=== PATIENT | female | born 1955 | race Caucasian/White ===

== ENCOUNTER → 2020-05-30 11:01 | Outpatient (BNVA) | payer OTHER, SELFPAY | PROVIDERS: PCP Internal Medicine; Referring Provider Internal Medicine; Visit Provider Physician Assistant | DX: R11.2 Nausea with vomiting, unspecified (principal); D64.9 Anemia, unspecified | CPT/HCPCS: 99212 ==

== ENCOUNTER 2020-06-02 13:39 | Outpatient (REF) | payer OTHER, SELFPAY ==
[2020-06-02 14:41] LABS: MANUAL DIFF FLAG NO
[2020-06-02 14:49] LABS: Basophils Percent Auto 0.6 % (0-2); Eosinophils Absolute Auto 0.2 X10*3/uL (0.0-0.4); Eosinophils Percent Auto 2.4 % (0-4); Hematocrit 29.3 % (37-47); Hemoglobin 8.4 g/dl (12.0-16.0); Imm Gran Abs Auto 0.02 X10*3/uL (0.00-0.03); Imm Gran Pct Auto 0.3 % (0.0-0.4); Lymphocytes Absolute Auto 1.9 X10*3/uL (1.2-4.9); Lymphocytes Percent Auto 27.5 % (20-40); Mean Corpuscular HGB Conc 28.7 g/dl (31.0-35.0); Mean Corpuscular Hemoglobin 19.4 pg (27.0-33.0); Mean Corpuscular Volume 67.8 fL (80-98); Mean Platelet Volume 9.3 fL (9.4-12.3); Monocytes Absolute Auto 0.5 X10*3/uL (0.1-1.2); Monocytes Percent Auto 6.7 % (2-11); Neutrophils Absolute Auto 4.2 X10*3/uL (2.0-8.3); Neutrophils Percent Auto 62.5 % (45-73); Platelet Count 339 X10*3/uL (160-400); Red Blood Count 4.32 X10*6/uL (4.20-5.50); Red Cell Distribution Width 22.9 % (11.0-16.0); White Blood Count 6.7 X10*3/uL (4.8-10.8)
[2020-06-02 15:21] LABS: Alanine Aminotransferase 18 U/L (0-31); Albumin Level 4.6 g/dL (3.5-5.0); Alkaline Phosphatase 86 U/L (39-117); Anion Gap 13 (12-20); Aspartate Amino Transferase 27 U/L (5-31); Bilirubin Total 0.6 mg/dL (0.0-1.0); Blood Urea Nitrogen 11 mg/dL (9-16); Calcium 8.9 mg/dL (8.4-10.2); Carbon Dioxide 29 mmol/L (22-29); Chloride 101 mmol/L (96-108); Estimated Glomerular Filt Rate > 60; Glucose Random 94 mg/dL (60-115); Potassium 3.8 mmol/l (3.3-5.1); Sodium 139 mmol/L (135-145); Total Protein 7.8 g/dL (6.5-8.0)
[2020-06-02 15:31] LABS: Ferritin 4 ng/mL (10-250); Thyroid Stimulating Hormone 1.23 uIU/mL (0.32-4.0)
[2020-06-02 15:44] LABS: Folate 9.7 ng/mL (> or = 4.0); Vitamin B12 405 pg/mL (200-900)
[2020-06-03 19:01] LABS: Transglutaminase IgA 1 U/mL
[2020-06-08 15:56] LABS: Endomysial IgA Antibody Negative (Negative)
== END 2020-06-02 13:40 | disposition home or self-care (01) ==
LOC: HO.LAB 13:39
PROVIDERS: PCP Internal Medicine; Visit Provider Physician Assistant
DX: D64.9 Anemia, unspecified (principal); R10.11 Right upper quadrant pain; R19.7 Diarrhea, unspecified; K59.09 Other constipation
CPT/HCPCS: 36415; 80053; 82607; 82728; 82746; 83516; 84443; 85025; 86255; 86256

== ENCOUNTER 2020-06-07 16:00 | Emergency (ER) | payer OTHER, SELFPAY ==
[2020-06-07 16:31] VITALS: BP 187/90; PULSE 88; RESP 18; TEMP 37.1; O2SAT 98; BMI 18.9
[2020-06-07 18:43] VITALS: BP 217/109; PULSE 83; RESP 16; O2SAT 100
--- NOTE | 2020-06-07 18:44 | ECG_ITS ---
Test Reason : ABNORMAL LABS Blood Pressure : / mmHG Vent. Rate : 081 BPM Atrial Rate : 081 BPM P-R Int : 198 ms QRS Dur : 088 ms QT Int : 422 ms P-R-T Axes : 043 034 062 degrees QTc Int : 490 ms Normal sinus rhythm Possible Left atrial enlargement Nonspecific ST abnormality Abnormal ECG When compared with ECG of 17-OCT-2018 06:47, Nonspecific T wave abnormality, improved in Inferior leads T wave inversion less evident in Anterolateral leads Referred By: Snehal Lopez Electronically Signed By:LISBET GONSALES MD
[2020-06-07 19:02] LABS: MANUAL DIFF FLAG NO
[2020-06-07 19:03] LABS: Basophils Absolute Auto 0.1 X10*3/uL (0.0-0.2); Basophils Percent Auto 0.6 % (0-2); Eosinophils Absolute Auto 0.2 X10*3/uL (0.0-0.4); Eosinophils Percent Auto 1.9 % (0-4); Hematocrit 30.4 % (37-47); Hemoglobin 8.7 g/dl (12.0-16.0); Imm Gran Abs Auto 0.03 X10*3/uL (0.00-0.03); Imm Gran Pct Auto 0.4 % (0.0-0.4); Lymphocytes Absolute Auto 2.4 X10*3/uL (1.2-4.9); Lymphocytes Percent Auto 28.7 % (20-40); Mean Corpuscular HGB Conc 28.6 g/dl (31.0-35.0); Mean Corpuscular Hemoglobin 19.6 pg (27.0-33.0); Mean Corpuscular Volume 68.3 fL (80-98); Mean Platelet Volume 9.1 fL (9.4-12.3); Monocytes Absolute Auto 0.6 X10*3/uL (0.1-1.2); Monocytes Percent Auto 6.9 % (2-11); Neutrophils Absolute Auto 5.2 X10*3/uL (2.0-8.3); Neutrophils Percent Auto 61.5 % (45-73); Platelet Count 319 X10*3/uL (160-400); Red Blood Count 4.45 X10*6/uL (4.20-5.50); Red Cell Distribution Width 22.9 % (11.0-16.0); White Blood Count 8.4 X10*3/uL (4.8-10.8)
[2020-06-07 19:05] LABS: Prothrombin Time 11.5 SEC (10.8-13.0)
[2020-06-07 19:38] LABS: Alanine Aminotransferase 12 U/L (0-31); Albumin Level 4.3 g/dL (3.5-5.0); Alkaline Phosphatase 76 U/L (39-117); Anion Gap 16 (12-20); Aspartate Amino Transferase 25 U/L (5-31); Bilirubin Direct < 0.2 mg/dL (0.0-0.5); Bilirubin Total 0.4 mg/dL (0.0-1.0); Blood Urea Nitrogen 21 mg/dL (9-16); Calcium 8.6 mg/dL (8.4-10.2); Carbon Dioxide 25 mmol/L (22-29); Chloride 104 mmol/L (96-108); Creatinine Clr Calc Pharmacy 56.3; Estimated Glomerular Filt Rate > 60; Glucose Random 89 mg/dL (60-115); Lipase 69 U/L (8-78); Potassium 3.9 mmol/l (3.3-5.1); Sodium 141 mmol/L (135-145); Total Protein 7.2 g/dL (6.5-8.0)
[2020-06-07 19:50] VITALS: BP 212/114; PULSE 81; RESP 14; TEMP 36.9; O2SAT 100
--- NOTE | 2020-06-07 19:50 | PC.NURSE ---
PT RESTING IN STRETHCER. EKG OBTAINED TO
[2020-06-07 19:56] VITALS: BP 212/109; PULSE 80
[2020-06-07] MEDS: lisinopriL 10 MG TABLET PO (19:56)
--- NOTE | 2020-06-07 20:00 | PC.NURSE ---
PT C/O STAYING TONIGHT. PA AT BEDSIDE CONVERSING WITH PT. PT STATES I HAVE A LOT OF THINGS TO DO TONIGHT AND I WILL COME BACK IN THE MORNING AND YOU CAN DO WHATEVER YOU WANT . PT MEDICATED FOR HIGH BP PER EMAR. PT EXPLAINED RISKS OF LEAVING AMA. PT DENIES ANY CP/SOB AT THIS TIME AND STATES MY B/P IS ALWAYS HIGH .
--- NOTE | 2020-06-07 20:16 | PC.NURSE ---
WHEN THIS NURSE RETURNS TO ROOM PT IS GONE. LEADS ON BED. PA AWARE.
--- NOTE | 2020-06-07 20:33 | ED.GENADULT ---
HPI - General Adult General Chief complaint: Recheck/Abnormal Lab/Rx Stated complaint: ABNORMAL LABS Time Seen by Provider: 06/07/20 18:19 Source: patient History of Present Illness HPI narrative: 64 y.o> F with PMH of HTN, alcohol abuse presenting to the ED for abnormal labs. Pt. states she was told by her doctor to come to the ED for a transfusion. She is scheduled for a colonoscopy on . She states last week she was having upper abdominal pain with episodes of black stool. She admits to using Peptobismol once. She states over the past 3 days she has been having normal BM no longer black. She denies associated hematemesis. She states she has stopped drinking but still continues to smoke. She did not take her BP medication (lisinopril 10mg )today. She denies fevers, CP, SOB, vomiting, hematemsis, urinary changes. No longer endorsing abdominal pain. Related Data Previous Rx's Medication Instructions Recorded bisacodyl 5 mg tablet,delayed 5 mg PO ONCE 1 Days #2 tab 06/07/20 release polyethylene glycol 3350 17 238 g PO .COMPLEX 1 Days #238 g 06/07/20 gram/dose oral powder Allergies Allergy/AdvReac Type Severity Reaction Status Date / Time Penicillins [PENICILLINS] Allergy Unknown RASH Verified 06/07/20 16:35 Review of Systems Constitutional: Constitutional: Denies fever(s) and Denies headache(s) Eyes: Eyes: Reports no additional eye complaints ENT: Denies headache(s) and Denies nasal congestion Cardiovascular: Cardiovascular: Denies chest pain and Denies dyspnea Respiratory: Respiratory: Denies dyspnea Gastrointestinal: Gastrointestinal: Reports abdominal pain, Reports melena and Denies coffee ground emesis Genitourinary: Comments: denies dysuria or hematuria Musculoskeletal: Musculoskeletal: Reports no additional musculoskeletal complaints Neurologic: Denies headache(s) and Denies focal weakness Hematologic/Lymphatic: Hematologic/Lymphatic: Denies easy bleeding PMFSH Past Medical History Medical History Alcohol use Anemia HTN (hypertension) Smoker Social History Social History (Updated 06/07/20 @ 20:41 by KAMILA Bright) Smoking Status: Current every day smoker Advance Directives: No Advance Directives Information Provided: Yes Current occupational status: disabled Physical Exam Vital Signs: Vital Signs: Last Vital Signs Temp 98.5 F 06/07/20 19:50 Pulse 80 11/17/20 19:56 Resp 14 06/07/20 19:50 BP 212/109 H 06/07/20 19:56 Pulse Ox 100 06/07/20 19:50 Body Mass Index 18.9 Const: Other: sitting upright at the bed of the stretcher, anxious Orientation/consciousness: patient oriented x3 HENMT: Head: Yes atraumatic Eyes: Pupils: Equal, round and reactive pupils present Neck: Neck: Yes trachea midline and Yes supple Resp: Auscultation: clear to auscultation bilaterally Cardio: Rate: regular rate GI: Inspection: No distended and No obesity Palpation (GI): Soft to palpation and nontender Rectal Exam - Female: deferred (pt. declined rectal exam ) Skin: Other: warm Neuro: General: patient oriented x3 Cranial nerves: Yes Equal, round and reactive pupils present Gait exam (Neuro): Normal gait present Extrem: General: Yes normal to inspection Course Course Course Narrative: 64 y.o. F presenting to the ED for abnormal labs. Per triage note pt. was presenting for a transfusion requested by her GI specialist Dr. rausch. Pt. is scheduled for a colonoscopy in 2 days. Pt. admits to having some abdominal pain last week with episodes of dark stool. She states over the past 3 days have stopped. VS significant for HTN, pt. did not take her BP medication. Will give home dose of lisinopril. Verified with [facility] pharmacy on [facility] in [place]. WIll plan to repeat basic labs. Will assess H&H, will order type and screen as I anticipate she will need a transfusion per her GI. Will order chemistry panel to assess for electrolyte abnormalities. Will evaluate EKG for signs of ischemia. She denies CP or SOB. Given her prior abdominal pain and black stool I am concerned she may have a GI bleed as she has a hx of alcohol abuse. pt. may not be forthcoming with stopping her alcohol use. She is not intoxicated at this time. -I discussed she will need admission for her transfusion and concern for GI bleed. pt. declined the rectal exam. She states she has to go home to take care of a few things. I encouraged her to stay for her complete work up and treatment. pt. continuing to decline. I discussed risks of GI bleed, hypertensive emergency, even . automotive technology instructor was present during this discussion. Pt. has full capacity to make this decision to not stay for further work up and treatment. Pt. will be leaving AMA. Pt. left prior to receiving discharge instructions. Medical Decision Making Lab Data Result diagrams: 06/07/20 18:50 06/07/20 18:50 Labs: Lab Results 06/07/20 06/07/20 06/07/20 Range/Units 18:50 18:50 18:50 WBC 8.4 (4.8-10.8) X10*3/uL RBC 4.45 (4.20-5.50) X10*6/uL Hgb 8.7 L (12.0-16.0) g/dl Hct 30.4 L (37-47) % MCV 68.3 L (80-98) fL MCH 19.6 L (27.0-33.0) pg MCHC 28.6 L (31.0-35.0) g/dl RDW 22.9 H (11.0-16.0) % Plt Count 319 (160-400) X10*3/uL MPV 9.1 L (9.4-12.3) fL Immature Gran % (Auto) 0.4 (0.0-0.4) % Neut % (Auto) 61.5 (45-73) % Lymph % (Auto) 28.7 (20-40) % [place] % (Auto) 6.9 (2-11) % Eos % (Auto) 1.9 (0-4) % Baso % (Auto) 0.6 (0-2) % Lymph # (Auto) 2.4 (1.2-4.9) X10*3/uL [place] # (Auto) 0.6 (0.1-1.2) X10*3/uL Eos # (Auto) 0.2 (0.0-0.4) X10*3/uL Baso # (Auto) 0.1 (0.0-0.2) X10*3/uL Abs Immat Gran (auto) 0.03 (0.00-0.03) X10*3/uL Absolute Neuts (auto) 5.2 (2.0-8.3) X10*3/uL Absolute Nucleated RBC 0.000 (0.0-0.012) X10*3/uL Nucleated RBC % (auto) 0.0 (0.0-0.2) /100WBC PT 11.5 (10.8-13.0) SEC INR 1.0 (0.9-1.1) Sodium 141 (135-145) mmol/L Potassium 3.9 (3.3-5.1) mmol/l Chloride 104 (96-108) mmol/L Carbon Dioxide 25 (22-29) mmol/L Anion Gap 16 (12-20) BUN 21 H D (9-16) mg/dL Creatinine 0.71 (0.5-1.4) mg/dL Estim Creat Clear Calc 56.3 Estimated GFR > 60 Random Glucose 89 (60-115) mg/dL Calcium 8.6 (8.4-10.2) mg/dL Total Bilirubin 0.4 (0.0-1.0) mg/dL Direct Bilirubin < 0.2 (0.0-0.5) mg/dL AST 25 (5-31) U/L ALT 12 (0-31) U/L Alkaline Phosphatase 76 (39-117) U/L Total Protein 7.2 (6.5-8.0) g/dL Albumin 4.3 (3.5-5.0) g/dL Lipase 69 (8-78) U/L ECG Data Attestation: I personally reviewed and interpreted this ECG as follows: Interpretation: T wave inversion V2 III, ST segment elevation V3, QTC 490 regular rate and rhythm, rate 81 Discharge Plan Discharge Clinical Impression: Anemia, Abdominal pain Patient Disposition: Left Against Medical Advice Prescriptions: No Action bisacodyl [Dulcolax (bisacodyl)] 5 mg tablet,delayed release (DR/EC) 5 mg PO ONCE 1 Days Qty: 2 RF: 0 polyethylene glycol 3350 [Miralax] 17 gram/dose powder 238 g PO .COMPLEX 1 Days Qty: 238 RF: 0
== END 2020-06-07 22:00 | disposition left against medical advice (07) ==
PROVIDERS: Physician Assistant Medical; Emergency Provider Internal Medicine; PCP Internal Medicine
DX: D64.9 Anemia, unspecified (principal); R10.9 Unspecified abdominal pain; I10 Essential (primary) hypertension; F17.200 Nicotine dependence, unspecified, uncomplicated; Z71.6 Tobacco abuse counseling; Z79.899 Other long term (current) drug therapy; R79.89 Other specified abnormal findings of blood chemistry
CPT/HCPCS: 36415; 80053; 80076; 82248; 83690; 85025; 85610; 93005; 99284

== ENCOUNTER 2020-06-09 06:25 | Day surgery (SDC) | payer OTHER, SELFPAY ==
--- NOTE | 2020-06-08 10:13 | P.CONAN_ITS ---
HPI - Anesthesia Eval Consult details Narrative: 64yo F for Upper Endoscopy and Colonoscopy Pt seen in ED 06/07/20 - sent by GI for blood transfusion. Pt left AMA before admission and transfusion. [facility] Past Medical History Medical History Alcohol use Anemia HTN (hypertension) Smoker Social History Social History (Updated 06/07/20 @ 20:41 by KAMILA Bright) Smoking Status: Current every day smoker Advance Directives: No Advance Directives Information Provided: Yes Current occupational status: disabled Meds Allergies Allergy/AdvReac Type Severity Reaction Status Date / Time Penicillins [PENICILLINS] Allergy Unknown RASH Verified 06/07/20 16:35 Exam Exam Date and Time: June 08, 2020 1013 Pertinent Lab Results Pertinent Lab Results: Laboratory Tests 06/07/20 06/07/20 18:50 18:50 WBC 8.4 Hgb 8.7 L Hct 30.4 L Plt Count 319 Sodium 141 Potassium 3.9 Chloride 104 Carbon Dioxide 25 BUN 21 H D Creatinine 0.71 Narrative Narrative: EKG 05/2020 Normal sinus rhythm Possible Left atrial enlargement Septal infarct , age undetermined Cannot rule out Inferior infarct (cited on or before 17-OCT-2018) Abnormal ECG When compared with ECG of 17-OCT-2018 06:47, Nonspecific T wave abnormality, improved in Inferior leads T wave inversion less evident in Anterolateral leads Assessment and Plan Assessment Anesthesia Assessment: Chart Reviewed
[2020-06-09 06:44] VITALS: BMI 20.5
--- NOTE | 2020-06-09 07:25 | PC.NURSE ---
PATIENT WAS EATING MINT UPON ARRIVAL, ANESTHESIA NOTIFIED. POOR PREP RESULTS PATIENT STATED SHE WAS STILL HAVING BROWN, SOLID BOWEL MOVEMENTS DESPITE DRINKING ENTIRE PREP AND WITHHOLDING FROM ANY SOLID FOODS THE DAY BEFORE. DR STARKS NOTIFIED AND REQUESTED PATIENT RECEIVE 2 FLEET ENEMAS AND PATIENT WAS MADE AWARE. UPON FURTHER QUESTIONING SHE STATED SHE HAD HALF A CUP OF MARISELA TEA WITH MILK IN IT ABOUT TWO HOURS AGO BEING 0500. ANESTHESIA NOTIFIED OF RECENT INTAKE OF LIQUIDS WELL A BLOOD PRESSURE OF 205/106. ANESTHESIA CAME TO BEDSIDE. BOTH ANESTHESIA BAUDILIO AND PATIENT IN AGREEMENT IT WOULD BE BEST TO CANCEL PROCEDURES FOR TODAY AND RESCHEDULE FOR ANOTHER DAY WITH BETTER PREP/INSTRUCTIONS. PATIENT NOTIFIED TO CALL OFFICE TO RESCHEDULE, BELONGINGS RETURNED AND PATIENT LEFT [facility] TO GO HOME
== END 2020-06-09 23:59 ==
LOC: HO.SSS 06:25
PROVIDERS: PCP Internal Medicine; Visit Provider Internal Medicine Gastroenterology
DX: D64.9 Anemia, unspecified (principal); Z53.8 Procedure and treatment not carried out for other reasons

== ENCOUNTER → 2020-06-20 10:01 | Outpatient (BNVA) | payer OTHER, SELFPAY | PROVIDERS: Visit Provider Physician Assistant | DX: D64.9 Anemia, unspecified (principal) | CPT/HCPCS: 99212 ==

== ENCOUNTER → 2020-07-19 08:50 | Outpatient (BNVA) | payer OTHER, SELFPAY | PROVIDERS: PCP Internal Medicine; Visit Provider Internal Medicine Gastroenterology | DX: D50.0 Iron deficiency anemia secondary to blood loss (chronic) (principal) | CPT/HCPCS: 99212 ==

== ENCOUNTER 2020-10-14 09:39 | Outpatient (REF) | payer OTHER, SELFPAY ==
[2020-10-14 11:29] LABS: MANUAL DIFF FLAG NO
[2020-10-14 11:30] LABS: Basophils Percent Auto 0.5 % (0-2); Eosinophils Absolute Auto 0.1 X10*3/uL (0.0-0.4); Eosinophils Percent Auto 1.4 % (0-4); Hematocrit 35.8 % (37-47); Hemoglobin 10.8 g/dl (12.0-16.0); Imm Gran Abs Auto 0.02 X10*3/uL (0.00-0.03); Imm Gran Pct Auto 0.3 % (0.0-0.4); Lymphocytes Absolute Auto 2.3 X10*3/uL (1.2-4.9); Lymphocytes Percent Auto 28.9 % (20-40); Mean Corpuscular HGB Conc 30.2 g/dl (31.0-35.0); Mean Corpuscular Hemoglobin 23.6 pg (27.0-33.0); Mean Corpuscular Volume 78.3 fL (80-98); Mean Platelet Volume 9.3 fL (9.4-12.3); Monocytes Absolute Auto 0.5 X10*3/uL (0.1-1.2); Monocytes Percent Auto 5.8 % (2-11); Neutrophils Percent Auto 63.1 % (45-73); Platelet Count 236 X10*3/uL (160-400); Red Blood Count 4.57 X10*6/uL (4.20-5.50); Red Cell Distribution Width 19.9 % (11.0-16.0); White Blood Count 7.9 X10*3/uL (4.8-10.8)
[2020-10-14 12:04] LABS: Alanine Aminotransferase 8 U/L (0-31); Albumin Level 4.1 g/dL (3.5-5.0); Alkaline Phosphatase 89 U/L (39-117); Anion Gap 14 (12-20); Aspartate Amino Transferase 17 U/L (5-31); Bilirubin Total 0.4 mg/dL (0.0-1.0); Blood Urea Nitrogen 17 mg/dL (9-16); Calcium 8.7 mg/dL (8.4-10.2); Carbon Dioxide 28 mmol/L (22-29); Chloride 104 mmol/L (96-108); Estimated Glomerular Filt Rate > 60; Glucose Random 95 mg/dL (60-115); Potassium 4.7 mmol/L (3.3-5.1); Sodium 141 mmol/L (135-145)
[2020-10-14 12:24] LABS: Ferritin 9 ng/mL (10-250)
== END 2020-10-14 09:40 | disposition home or self-care (01) ==
LOC: HO.LAB 09:39
PROVIDERS: PCP Internal Medicine; Visit Provider Internal Medicine Gastroenterology
DX: D50.0 Iron deficiency anemia secondary to blood loss (chronic) (principal); I10 Essential (primary) hypertension; D64.9 Anemia, unspecified; F17.210 Nicotine dependence, cigarettes, uncomplicated; F10.20 Alcohol dependence, uncomplicated; Z88.0 Allergy status to penicillin
CPT/HCPCS: 36415; 80053; 82728; 85025; 99212

== ENCOUNTER 2020-10-15 16:40 | Emergency (ER) | payer OTHER, SELFPAY ==
--- NOTE | ~2020-10-15 | XR_ITS ---
EXAMINATION: XR CHEST CLINICAL INFORMATION: Hemoptysis COMPARISON: None TECHNIQUE: 2 views of the chest were obtained. FINDINGS: Aorta is ectatic and unfolded, but otherwise no significant abnormality is noted involving the heart, lungs, mediastinum, bony thorax or soft tissues. Old healed rib fractures are noted on the left. XR/XR chest 2V IMPRESSION: No acute intrathoracic disease. A cause for the patient's hemoptysis has not been found.
[2020-10-15 16:43] VITALS: BP 218/105; PULSE 82; RESP 18; TEMP 36.8; O2SAT 99; BMI 20.5
--- NOTE | 2020-10-15 16:50 | PC.NURSE ---
Pt states that her BP is often elevated with SBPs in the 200s. She also states that she is not always compliant with her medications due to forgetfulness. She states that she forgot today until about 1/2 hr before she came to the ED.
--- NOTE | 2020-10-15 18:31 | ED_ITS ---
HPI - General Adult General Chief complaint: General Medical Stated complaint: coughing up blood Time Seen by Provider: 10/15/20 18:21 Source: patient Mode of arrival: ambulatory Limitations: no limitations History of Present Illness HPI narrative: 64-year-old female with a past medical history of hypertension, anemia, former alcohol use, tobacco smoker here with complaints of 1 episode of hemoptysis. Patient tells me she was coughing and she coughed up a tsp sputum which was mixed with bright red blood. She tells me she has a chronic cough due to her smoking. She denies any shortness of breath, chest pain, fevers, chills. No previous episodes of hemoptysis. No leg swelling or pain. No history of PE or DVT. No family history. No recent travel or estrogen use. History of alcohol abuse but sober for greater than 6 months. Of note, the patient has a history of hypertension and is intermittently co mpliant with her blood pressure medications due to side effects. She tells me she took her dose of lisinopril 10 mg Norvasc and 10 mg just prior to arrival. No headache, vision changes, nausea, vomiting. No hematemesis, bright red or black stools. Related Data Home Medications Medication Instructions Recorded Confirmed amlodipine 10 mg tablet 10 mg PO DAILY 07/19/20 07/19/20 lisinopril 10 mg tablet 10 mg PO DAILY 07/19/20 07/19/20 sucralfate 1 gram tablet 1 g PO QID 07/19/20 07/19/20 Previous Rx's Medication Instructions Recorded bisacodyl 5 mg tablet,delayed 5 mg PO ONCE 1 Days #2 tab 06/07/20 release polyethylene glycol 3350 17 238 g PO .COMPLEX 1 Days #238 g 06/07/20 gram/dose oral powder bisacodyl 5 mg tablet,delayed 5 mg PO ONCE 1 Days #2 tab 06/20/20 release miralax See Rx Instructions PO ONCE #238 g 06/20/20 docusate sodium 100 mg capsule 100 mg PO BID #60 cap 07/19/20 ferrous gluconate 324 mg (38 mg 324 mg PO BID #60 tab 07/19/20 iron) tablet chlorthalidone 25 mg tablet 25 mg PO DAILY #30 tab 10/14/20 Allergies Allergy/AdvReac Type Severity Reaction Status Date / Time Penicillins [PENICILLINS] Allergy Unknown RASH Verified 10/15/20 16:43 Review of Systems Review of Systems: Yes all other systems are reviewed and are negative Constitutional: Constitutional: Reports no additional constitutional complaints, Denies body ache(s), Denies chills, Denies fever(s), Denies headache(s) and Denies weakness Eyes: Eyes: Reports no additional eye complaints and Denies change in vision ENT: Reports system reviewed and no additional complaints, except as docum ented, Denies dizziness, Denies headache(s), Denies nasal congestion, Denies nasal discharge and Denies neck pain Cardiovascular: Cardiovascular: Reports no additional cardiovascular complaints, Denies chest pain, Denies leg edema and Denies dyspnea Respiratory: Respiratory: Reports no additional respiratory complaints, Denies cough, Reports hemoptysis and Denies dyspnea Gastrointestinal: Gastrointestinal: Reports no additional gastrointestinal complaints, Denies abdominal pain, Denies diarrhea, Denies nausea and Denies vomiting Genitourinary: Genitourinary: Reports no additional female genitourinary complaints and Denies urinary incontinence Musculoskeletal: Musculoskeletal: Reports no additional musculoskeletal com plaints, Denies back pain, Denies arthralgias, Denies joint swelling, Denies neck pain, Denies numbness and Denies tingling Integumentary/Breasts: Skin/Breast: Reports system reviewed and no additional complaints, except as docu and Denies rash Neurologic: Reports system reviewed and no additional complaints, except as documented, Denies Abnormal speech present, Denies dizziness, Denies headache(s), Denies numbness, Denies tingling and Denies weakness [facility] Past Medical History Attestation statement: The following information was validated with the patient. Source: old records reviewed and nursing notes reviewed Medical History Alcohol use Anemia HTN (hypertension) Smoker Surgical History History of colonoscopy Family History Family History Father No problems noted. Mother No problems noted. Social History Social History Household Members: None Alcohol intake: current Alcohol intake frequency: does not drink Smoking Status: Current every day smoker Tobacco Type: Cigarette Cigarettes Per Day: 10 Advance Directives: No Advance Directives Information Provided: Yes Current occupational status: disabled Physical Exam Vital Signs: Vital Signs: Last Vital Signs Temp 98.2 F 10/15/20 16:43 Pulse 72 10/15/20 20:42 Resp 16 10/15/20 20:42 BP 211/107 H 10/15/20 20:42 Pulse Ox 100 10/15/20 20:42 Body Mass Index 20.5 Const: General: cooperative, healthy appearing, comfortable and no acute distress Orientation/consciousness: patient oriented x3 Limitations: no limitations HENMT: Head: Yes normal to inspection Ears: hearing grossly normal bilate rally General nose exam: Normal external nose present Face and sinus: Yes normal facial exam Mouth: Normal oral and palatal mucosa present Throat: Yes posterior oropharynx normal Eyes: General: appearance normal, both eyes and all related structures Pupils: Equal, round and reactive pupils present Neck: Neck: Yes normal visual inspection Chest: Chest palpation & inspection: normal inspection of the chest Resp: Effort & Inspection: normal respiratory effort Auscultation: clear to auscultation bilaterally Cardio: Rate: regular rate Rhythm: regular rhythm Peripheral pulses: Peripheral pulses 2+ throughout GI: Inspection: Yes normal to inspection Palpation (GI): Soft to palpation and nontender Auscultation: normal bowel sounds Back/Spine/Pelvis: Thoracic/Lumbar Spine: thoracic and lumbar spine normal to inspection Skin: General skin exam: no rashes or lesions noted Neuro: General: patient oriented x3, no focal motor deficits and normal se nsation to monofilament Cranial nerves: Yes Equal, round and reactive pupils present Cognition (Neuro): normal cognition Speech: No Abnormal speech present Gait exam (Neuro): Normal gait present Motor exam (neuro): 5/5 motor strength present throughout Extrem: General: Yes normal to inspection, Yes no pedal edema and Yes no calf tenderness Course Course Course Narrative: 64 yo female here s/p 1 episode of hemoptysis after coughing episode. No shortness of breath, chest pain, leg swelling or pain. History of chronic cough secondary to tobacco use per patient. No anticoagulation. Will need labs, chest x-ray. 2029-CXR shows no acute finding. Labs show stable hgb, platelets and coags. D dimer negative. Asymptomatic hypertension. Will give additional dose of 10mg lisinopril. 2144-patient had no additional episodes while here in the emergency department. Likely irritation secondary to chronic cough from tobacco smoking. Did discuss with the patient if she would have continued episodes I would recommend that she return to the emergency department. We also discussed her hypertension. Although she is asymptomatic we discussed dietary changes at home, decreasing smoking, taking her medications as prescribed, close follow-up with primary care doctor. Reviewed worrisome signs and symptoms and when to return to the emergency department. Comfortable with discharge home. Medical Decision Making MDM Narrative Medical decision making narrative: Bronchitis, PE, P hemorrhage, coagulopathy, TB Less likely PE with negative D-dimer, no hypoxia or tachycardia or clinical signs and symptoms of for DVT, less likely pulmonary hemorrhage with a solitary episode (normal coags, platelets), less likely TB with no weight loss, continued episodes, sob, and normal cxr. Medical Records Medical records reviewed: Yes I reviewed the patient's medical records. Lab Data Lab results reviewed: Yes I reviewed the patient's lab results. Result diagrams: 10/15/20 19:47 10/15/20 19:47 Labs: Lab Results 10/15/20 10/15/20 10/15/20 Range/Units 19:47 19:47 19:47 WBC 7.8 (4.8-10.8) X10*3/uL RBC 4.51 (4.20-5.50) X10*6/uL Hgb 10.6 L (12.0-16.0) g/dl Hct 35.0 L (37-47) % MCV 77.6 L (80-98) fL MCH 23.5 L (27.0-33.0) pg MCHC 30.3 L (31.0-35.0) g/dl RDW 19.9 H (11.0-16.0) % Plt Count 229 (160-400) X10*3/uL MPV 9.5 (9.4-12.3) fL Immature Gran % (Auto) 0.3 (0.0-0.4) % Neut % (Auto) 60.5 (45-73) % Lymph % (Auto) 31.1 (20-40) % [place] % (Auto) 5.4 (2-11) % Eos % (Auto) 2.2 (0-4) % Baso % (Auto) 0.5 (0-2) % Lymph # (Auto) 2.4 (1.2-4.9) X10*3/uL [place] # (Auto) 0.4 (0.1-1.2) X10*3/uL Eos # (Auto) 0.2 (0.0-0.4) X10*3/uL Baso # (Auto) 0.0 (0.0-0.2) X10*3/uL Abs Immat Gran (auto) 0.02 (0.00-0.03) X10*3/uL Absolute Neuts (auto) 4.7 (2.0-8.3) X10*3/uL Absolute Nucleated RBC 0.000 (0.0-0.012) X10*3/uL Nucleated RBC % (auto) 0.0 (0.0-0.2) /100WBC PT 11.3 (10.8-13.0) SEC INR 1.0 (0.9-1.1) D-Dimer < 200 NG/ML Sodium 137 (135-145) mmol/L Potassium 4.1 (3.3-5.1) mmol/L Chloride 103 (96-108) mmol/L Carbon Dioxide 26 (22-29) mmol/L Anion Gap 12 (12-20) BUN 24 H (9-16) mg/dL Creatinine 0.76 (0.5-1.4) mg/dL Estim Creat Clear Calc 48.9 Estimated GFR > 60 Random Glucose 91 (60-115) mg/dL Calcium 8.4 (8.4-10.2) mg/dL Total Bilirubin 0.5 (0.0-1.0) mg/dL Direct Bilirubin < 0.2 (0.0-0.5) mg/dL AST 16 (5-31) U/L ALT 7 (0-31) U/L Alkaline Phosphatase 82 (39-117) U/L Total Protein 6.7 (6.5-8.0) g/dL Albumin 4.0 (3.5-5.0) g/dL Imaging Data Chest x-ray: Attestation: I personally reviewed and interpreted this imaging study as follows: Radiologist's impression: EXAMINATION: XR CHEST CLINICAL INFORMATION: Hemoptysis COMPARISON: None TECHNIQUE: 2 views of the chest were obtained. FINDINGS: Aorta is ectatic and unfolded, but otherwise no significant abnormality is noted involving the heart, lungs, mediastinum, bony thorax or soft tissues. Old healed rib fractures are noted on the left. XR/XR chest 2V IMPRESSION: No acute intrathoracic disease. A cause for the patient's hemoptysis has not been found. Discharge Plan Discharge Clinical Impression: Cough with hemoptysis, Hypertension Patient Disposition: Home, Self-Care Instructions: Hemoptysis (ED), Chronic Hypertension (ED) Additional Instructions: Your blood pressure was very high today. You were given extra dose of lisinopril 10 mg. Monitor blood pressure at home and discuss this with her primary care doctor on Saturday as they might need to increase her doses of medication. Avoid caffeine. Cut down on smoking. Take your medications as prescribed. Your chest x-ray looks good and your blood work all looks good today as well. You need to return if you have continued episodes as you told me you only had a solitary episode at home. Return here for continued episodes of coughing up blood, severe headache, , vision changes, vomiting, chest pain Prescriptions: No Action bisacodyl [Dulcolax (bisacodyl)] 5 mg tablet,delayed release (DR/EC) 5 mg PO ONCE 1 Days Qty: 2 RF: 0 polyethylene glycol 3350 [Miralax] 17 gram/dose powder 238 g PO .COMPLEX 1 Days Qty: 238 RF: 0 bisacodyl [Dulcolax (bisacodyl)] 5 mg tablet,delayed release (DR/EC) 5 mg PO ONCE 1 Days Qty: 2 RF: 0 miralax See Rx Instructions PO ONCE Qty: 238 RF: 0 lisinopril 10 mg tablet 10 mg PO DAILY RF: 0 amlodipine 10 mg tablet 10 mg PO DAILY RF: 0 sucralfate 1 gram tablet 1 g PO QID RF: 0 ferrous gluconate 324 mg (38 mg iron) tablet 324 mg PO BID Qty: 60 RF: 3 docusate sodium [Colace] 100 mg capsule 100 mg PO BID Qty: 60 RF: 3 chlorthalidone 25 mg tablet 25 mg PO DAILY Qty: 30 RF: 3 Referrals: Luna Cee MD [Primary Care Provider] - 2 days
--- NOTE | 2020-10-15 19:54 | PC.NURSE ---
LABS DRAWN TO LAB.
[2020-10-15 19:55] LABS: MANUAL DIFF FLAG NO
[2020-10-15 19:57] LABS: Basophils Percent Auto 0.5 % (0-2); Eosinophils Absolute Auto 0.2 X10*3/uL (0.0-0.4); Eosinophils Percent Auto 2.2 % (0-4); Hemoglobin 10.6 g/dl (12.0-16.0); Imm Gran Abs Auto 0.02 X10*3/uL (0.00-0.03); Imm Gran Pct Auto 0.3 % (0.0-0.4); Lymphocytes Absolute Auto 2.4 X10*3/uL (1.2-4.9); Lymphocytes Percent Auto 31.1 % (20-40); Mean Corpuscular HGB Conc 30.3 g/dl (31.0-35.0); Mean Corpuscular Hemoglobin 23.5 pg (27.0-33.0); Mean Corpuscular Volume 77.6 fL (80-98); Mean Platelet Volume 9.5 fL (9.4-12.3); Monocytes Absolute Auto 0.4 X10*3/uL (0.1-1.2); Monocytes Percent Auto 5.4 % (2-11); Neutrophils Absolute Auto 4.7 X10*3/uL (2.0-8.3); Neutrophils Percent Auto 60.5 % (45-73); Platelet Count 229 X10*3/uL (160-400); Red Blood Count 4.51 X10*6/uL (4.20-5.50); Red Cell Distribution Width 19.9 % (11.0-16.0); White Blood Count 7.8 X10*3/uL (4.8-10.8)
[2020-10-15 20:03] LABS: Prothrombin Time 11.3 SEC (10.8-13.0)
[2020-10-15 20:24] LABS: Alanine Aminotransferase 7 U/L (0-31); Alkaline Phosphatase 82 U/L (39-117); Anion Gap 12 (12-20); Aspartate Amino Transferase 16 U/L (5-31); Bilirubin Direct < 0.2 mg/dL (0.0-0.5); Bilirubin Total 0.5 mg/dL (0.0-1.0); Blood Urea Nitrogen 24 mg/dL (9-16); Calcium 8.4 mg/dL (8.4-10.2); Carbon Dioxide 26 mmol/L (22-29); Chloride 103 mmol/L (96-108); Creatinine Clr Calc Pharmacy 48.9; Estimated Glomerular Filt Rate > 60; Glucose Random 91 mg/dL (60-115); Potassium 4.1 mmol/L (3.3-5.1); Sodium 137 mmol/L (135-145); Total Protein 6.7 g/dL (6.5-8.0)
[2020-10-15 20:35] LABS: D Dimer < 200 NG/ML
[2020-10-15 20:36] VITALS: BP 211/107; PULSE 78
[2020-10-15] MEDS: lisinopriL 10 MG TABLET PO (20:36)
[2020-10-15 20:42] VITALS: BP 211/107; PULSE 72; RESP 16; O2SAT 100
== END 2020-10-15 21:24 | disposition home or self-care (01) ==
PROVIDERS: Nurse Practitioner Family; Emergency Provider Emergency Medicine; PCP Internal Medicine
DX: R04.2 Hemoptysis (principal); I10 Essential (primary) hypertension; D64.9 Anemia, unspecified; F17.210 Nicotine dependence, cigarettes, uncomplicated; Z91.14 Patient's other noncompliance with medication regimen
CPT/HCPCS: 36415; 71046; 80048; 80076; 85025; 85379; 85610; 99283; 99284

== ENCOUNTER → 2020-11-11 08:58 | Outpatient (REF) | payer OTHER, SELFPAY ==
--- NOTE | 2020-11-11 09:30 | CA_ITS ---
Transthoracic Echocardiogram Patient (Last, First, Middle): Patti Red M Gender: Female Date of : 1955 Age: 65 Procedure Date: 11/11/2020 Procedure Type: Transthoracic Echocardiogram Location: OP Height: 152.4 cm Weight: 44.45 kg BSA: 1.38 m2 Heart Rate: bpm BP: 120 / 88 mmHg Brazing Furnace Feeder: Tory MD: Misty Lobo MD Filter Assembler: Joseluis Kim MD Symptoms: R01.1 CARDIAC MURMUR Study Quality: Good ECG Rhythm: Sinus Conclusions: - 1. Normal LV systolic function with grade 1 diastolic dysfunction 2. Mild to moderate aortic regurgitation 3. Mildly dilated aortic root 4. Moderate mitral annular calcification 5. Normal RV systolic pressure 6. No pericardial effusion Findings Left Ventricle Normal left ventricular size, thickness, and systolic function. The visually estimated ejection fraction is between 65-70%. Spectral Doppler is indicative of an impaired relaxation filling pattern. E/E prime ratio is <8, consistent with normal filling pressures. Evidence suggests grade I (mild) diastolic dysfunction. Right Ventricle Normal right ventricular cavity size and systolic function. Atria Both atria are normal in size. There is no evidence of interatrial shunt. Aortic Valve Normal aortic valve structure and function. There is no aortic valve stenosis. There is mild to moderate aortic valve regurgitation. Mitral Valve Normal mitral valve structure and function. There is moderate mitral annular calcification. There is trace mitral valve regurgitation. There is no mitral valve stenosis. Pulmonic Valve The pulmonic valve was not well visualized. Tricuspid Valve Likely normal tricuspid valve structure and function. The right ventricular systolic pressure is normal. The right ventricular systolic pressure is 24 mmHg. There is no evidence of pulmonary hypertension. Great Vessels The pulmonary artery was not well visualized. There is mild dilatation of the sinuses of Valsalva. Venous The inferior vena cava is normal in size and collapses greater than 50% with inspiration. Pericardium/Pleural There is no evidence of pericardial effusion. Prior Study Comparison No prior study available for comparison. Measurements 2D Linear Measurements RVIDd: 2.36 RVIDd Index: 1.71 IVSd: 1.10 0.6-0.9/0.6-1.0 cm LVIDd: 4.56 3.9-5.3/4.2-5.9 cm LVIDd Index: 3.30 2.4-3.2/2.2-3.1 cm/m2 LVIDs: 2.41 2.0-3.6 cm LVPWd: 0.98 0.7-1.1 cm Ao Root: 4.20 2.1-3.5 cm LA Diam: 3.00 2.7-3.8/3.0-4.0 cm LAIDs Index: 2.17 1.5-2.3 cm/m2 LV Mass: 205.58 67-162/88-224 g LV Mass Index: 148.97 43-95/49-115 g/m2 LVOT Diam: 1.90 3.0+(-)1.3 cm 2D Systolic Function EF 4C: 52.70 >55% EF 2C: 74.60 >55% EF BiP: 65.10 >55% Mitral Valve MV Pk E: 0.34 MV PK A: 0.75 MV Decel Time: 225.00 E/A: 0.50 E'Lateral: 3.09 E'Medial: 3.67 E/E' Med: 9.40 E/E' Lat: 11.10 Aortic Valve AoV Pk Vivek: 1.64 AoV Mn Vivek: 1.21 AoV VTI: 0.29 AoV Pk Grad: 11.00 Aov Mn Grad: 7.00 RAYMOND Cont.VTI: 2.16 AI Pk Vivek: 5.21 AI Piute: 1.84 LVOT LVOT Pk Vivek: 1.32 LVOT Mn Vievk: 0.96 LVOT VTI: 0.22 LVOT Pk Grad: 7.00 LVOT Mn Grad: 4.00 LVOT Diam: 1.90 LVOT Area: 2.84 Diastolic Function MV Pk E: 0.34 MV Pk A: 0.75 E/A: 0.50 E'Medial: 3.67 E/E' Med: 9.40 E' Laterial: 3.09 E/E' Lat: 11.10 Tricuspid Valve TR Pk Vivek: 2.29 TR Pk Grad: 21.00 RA Press: 3.00 RVSP: 24.00 Great Vessels Aorta Ao Root-2D: 4.20 2.0-3.7 cm Sinus of Valsalva: 4.20 2.0-3.5 cm Ao Asc: 3.30 2.1-3.4 cm Ao Arch: 3.00 Updated in Other Vendor System with Status of Final Joseluis Kim MD electronically signed on 11/13/2020 12:09:51 PM with status of Final
== END ==
LOC: HO.CARD 08:58
PROVIDERS: Visit Provider Internal Medicine
DX: R01.1 Cardiac murmur, unspecified (principal)
CPT/HCPCS: 93306

== ENCOUNTER → 2020-12-15 12:21 | Outpatient (BNVA) | payer OTHER, SELFPAY | PROVIDERS: PCP Internal Medicine; Referring Provider Internal Medicine; Visit Provider Internal Medicine Cardiovascular Disease | DX: I10 Essential (primary) hypertension (principal); I35.1 Nonrheumatic aortic (valve) insufficiency; I77.89 Other specified disorders of arteries and arterioles | CPT/HCPCS: 99202 ==

== ENCOUNTER 2020-12-20 09:55 | Outpatient (REF) | payer OTHER, SELFPAY ==
[2020-12-20 10:50] LABS: MANUAL DIFF FLAG NO
[2020-12-20 11:01] LABS: Basophils Absolute Auto 0.1 X10*3/uL (0.0-0.2); Basophils Percent Auto 0.8 % (0-2); Eosinophils Absolute Auto 0.1 X10*3/uL (0.0-0.4); Eosinophils Percent Auto 1.7 % (0-4); Hematocrit 39.3 % (37-47); Hemoglobin 12.3 g/dl (12.0-16.0); Imm Gran Abs Auto 0.03 X10*3/uL (0.00-0.03); Imm Gran Pct Auto 0.4 % (0.0-0.4); Lymphocytes Absolute Auto 2.3 X10*3/uL (1.2-4.9); Lymphocytes Percent Auto 29.1 % (20-40); Mean Corpuscular HGB Conc 31.3 g/dl (31.0-35.0); Mean Corpuscular Hemoglobin 26.2 pg (27.0-33.0); Mean Corpuscular Volume 83.8 fL (80-98); Mean Platelet Volume 10.2 fL (9.4-12.3); Monocytes Absolute Auto 0.5 X10*3/uL (0.1-1.2); Monocytes Percent Auto 6.1 % (2-11); Neutrophils Absolute Auto 4.9 X10*3/uL (2.0-8.3); Neutrophils Percent Auto 61.9 % (45-73); Platelet Count 251 X10*3/uL (160-400); Red Blood Count 4.69 X10*6/uL (4.20-5.50); White Blood Count 7.9 X10*3/uL (4.8-10.8)
[2020-12-20 11:31] LABS: Ferritin 8 ng/mL (10-250)
== END 2020-12-20 09:56 | disposition home or self-care (01) ==
LOC: HO.LAB 09:55
PROVIDERS: Absent Provider Internal Medicine; PCP Internal Medicine; Visit Provider Internal Medicine Gastroenterology
DX: D50.0 Iron deficiency anemia secondary to blood loss (chronic) (principal)
CPT/HCPCS: 36415; 82728; 85025

== ENCOUNTER → 2021-04-11 11:28 | Outpatient (BNVA) | payer OTHER, SELFPAY | PROVIDERS: PCP Internal Medicine; Visit Provider Internal Medicine Gastroenterology ==

== ENCOUNTER → 2021-07-11 11:06 | Outpatient (BNVA) | payer OTHER, SELFPAY | PROVIDERS: PCP Internal Medicine; Referring Provider Internal Medicine; Visit Provider Internal Medicine Gastroenterology | DX: D50.0 Iron deficiency anemia secondary to blood loss (chronic) (principal); I10 Essential (primary) hypertension | CPT/HCPCS: 99212 ==

== ENCOUNTER 2021-09-25 13:28 | Outpatient (REF) | payer OTHER, SELFPAY ==
[2021-09-25 13:47] LABS: MANUAL DIFF FLAG NO
[2021-09-25 13:56] LABS: Basophils Absolute Auto 0.1 X10*3/uL (0.0-0.2); Basophils Percent Auto 0.6 % (0-2); Eosinophils Absolute Auto 0.1 X10*3/uL (0.0-0.4); Eosinophils Percent Auto 1.4 % (0-4); Hematocrit 40.9 % (37.0-47.0); Hemoglobin 13.6 g/dl (12.0-16.0); Imm Gran Abs Auto 0.02 X10*3/uL (0.00-0.03); Imm Gran Pct Auto 0.3 % (0.0-0.4); Lymphocytes Absolute Auto 2.2 X10*3/uL (1.2-4.9); Lymphocytes Percent Auto 27.3 % (20-40); Mean Corpuscular HGB Conc 33.3 g/dl (31.0-35.0); Mean Corpuscular Hemoglobin 30.7 pg (27.0-33.0); Mean Corpuscular Volume 92.3 fL (80.0-98.0); Mean Platelet Volume 9.6 fL (9.4-12.3); Monocytes Absolute Auto 0.5 X10*3/uL (0.1-1.2); Monocytes Percent Auto 5.9 % (2-11); Neutrophils Absolute Auto 5.2 x10*3/uL (2.0-8.3); Neutrophils Percent Auto 64.5 % (45-73); Platelet Count 220 X10*3/uL (160-400); Red Blood Count 4.43 X10*6/uL (4.20-5.50); Red Cell Distribution Width 11.9 % (11.0-16.0)
[2021-09-25 14:48] LABS: Ferritin 60 ng/mL (10-250)
[2021-09-26 05:26] LABS: HBS Num1 13.21 mIU/mL (0-7.99); HBc Num1 0.73 S/CO (0.00-0.79); Hepatitis B Core Antibody Nonreactive (Nonreactive); ~Hepatitis B Surface Antibody REACTIVE (Nonreactive); ~Hepatitis C Antibody Nonreactive (Nonreactive)
[2021-09-26 05:38] LABS: HBsAGNum1 0.22 S/CO (0.00-0.99); Hepatitis B Surface Antigen Negative (Negative)
[2021-09-29 08:58] LABS: Hepatitis A Antibody IgM 0.15 Index (0-0.79); ~Hepatitis A Antibody IgM Nonreactive (Nonreactive)
[2021-10-01 12:02] LABS: HCV Genotype PCR Not Detected
== END 2021-09-25 13:29 | disposition home or self-care (01) ==
LOC: HO.LAB 13:28
PROVIDERS: PCP Internal Medicine Gastroenterology; Visit Provider Internal Medicine Gastroenterology
DX: Z01.84 Encounter for antibody response examination (principal); D50.0 Iron deficiency anemia secondary to blood loss (chronic); I10 Essential (primary) hypertension
CPT/HCPCS: 36415; 82728; 85025; 86704; 86706; 86709; 86803; 87340